=== PATIENT | female | born 1985 | race Caucasian/White ===

== ENCOUNTER 2016-07-08 13:16 | Emergency (ER) | payer OTHER ==
[~2016-07-08] VITALS: Ht 162.6 cm; Wt 81.0 kg
[~2016-07-08 13:16] MED LIST: FLAGYL500 MG PO; HYDROXYZINE PAM50 MG PO; METHADOSE40 MG PO; METRONIDAZOLE500 MG; MONISTAT 745 GM VG; NAPROXEN500 MG PO; QUETIAPINE FUM100 MG PO; SUBOXONE 8 MG-1 EAC1 SL; SUBOXONE 8 MG-1 EAC2 SL; ULTRAM50 MG PO
[2016-07-08] MEDS ORDERED: LIDODERM 5% P1 PATCH TD (18:22)
[2016-07-08] MEDS ORDERED: NAPROSYN500 MG PO (18:22)
[2016-07-08 18:34] VITALS: BP 126/75
== END 2016-07-08 18:39 | disposition home or self-care (01) ==
LOC: EME 13:16
DX: S46.811A Strain of other muscles, fascia and tendons at shoulder and upper arm level, right arm, initial encounter (principal); X50.0XXA Overexertion from strenuous movement or load, initial encounter; Y99.0 Civilian activity done for income or pay; Y92.129 Unspecified place in nursing home as the place of occurrence of the external cause; F17.210 Nicotine dependence, cigarettes, uncomplicated
CPT/HCPCS: 73000; 99281; 99284; J1885